=== PATIENT | female | born 1990 | race Caucasian/White ===

== ENCOUNTER 2020-07-11 08:52 | Emergency (ER) | payer BC, OTHER ==
[~2020-07-11 08:52] MED LIST: BENTYL 10MG CAP10 MG PO; HYDROCODON-ACE1 EAC4 PO; IBUPROFEN800 MG PO; KEFLEX CAP 500500 MG PO; ZOFRAN ODT 4 MG4 MG PO
[2020-07-11 09:43] LABS: HEMOGLOBIN 13.6 gm/dl (12.3-15.3); RED BLOOD COUNT 4.6 M/UL (4.00-5.10); WHITE BLOOD COUNT 10.2 K/UL (4.5-11.0)
[2020-07-11 10:25] LABS: BUN/CREATININE RATIO 18 (0-10)
[2020-07-11] MEDS ORDERED: PROVERA10 MG PO (10:43)
== END 2020-07-11 10:57 | disposition home or self-care (01) ==
LOC: ER1 08:52
PROVIDERS: Physician Assistant
DX: N83.202 Unspecified ovarian cyst, left side (principal); N93.8 Other specified abnormal uterine and vaginal bleeding; Z88.8 Allergy status to other drugs, medicaments and biological substances
CPT/HCPCS: 76830; 80048; 81001; 84703; 85025; 99284

== ENCOUNTER 2020-10-06 04:16 | Emergency (ER) | payer BC, OTHER ==
[~2020-10-06 04:16] MED LIST changes: +PROVERA10 MG PO
[2020-10-06] MEDS ORDERED: ZOFRAN ODT 4 MG4 MG PO (04:42)
[2020-10-06] MEDS ORDERED: LODINE CAP 300300 MG PO (04:42)
[2020-10-06] MEDS ORDERED: PENVEE K 500 M500 MG PO (04:42)
== END 2020-10-06 05:15 | disposition home or self-care (01) ==
LOC: ER1 04:16
DX: K08.89 Other specified disorders of teeth and supporting structures (principal); J45.909 Unspecified asthma, uncomplicated; Z88.8 Allergy status to other drugs, medicaments and biological substances
CPT/HCPCS: 96372; 99282; J1885